=== PATIENT | male | born 1970 | race Caucasian/White ===

== ENCOUNTER 2021-06-19 16:22 | Emergency (ER) | payer BC ==
[~2021-06-19] VITALS: Ht 182.9 cm; Wt 81.6 kg
[2021-06-19] MEDS ORDERED: ONDANSETRON HCL INJ 2MG/ML 2ML 2 MG/ML VIAL IV STA (17:13)
[2021-06-19] MEDS ORDERED: SODIUM CHLORIDE 0.9% 1000ML 1,000 ML IV SCH (17:15)
[2021-06-19] MEDS ORDERED: SODIUM CHLORIDE 0.9% 1000ML 1,000 ML ONE (17:23)
[2021-06-19 17:52] LABS: BASOPHILS % 0.2 % (0.0-1.0); HEMATOCRIT 42.2 % (38.2-49.6); HEMOGLOBIN 13.8 g/dL (14.0-18.0); LYMPHOCYTES # (AUTO) 0.7 (1.0-3.2); LYMPHOCYTES % 17.1 % (18.0-39.1); MEAN CORPUSCULAR HEMOGLOBIN 28.5 pg (28-32); MEAN CORPUSCULAR HGB CONC 32.7 g/dL (31-35); MONOCYTES # (AUTO) 0.2 (0.2-0.8); MONOCYTES % 5.2 % (4.4-11.3); NEUTROPHILS # (AUTO) 3.3 (2.1-6.9); PLATELET COUNT 132 x10e3/uL (140-360); RED BLOOD COUNT 4.85 x10e6/uL (4.3-5.7); RED CELL DISTRIBUTION WIDTH 12.9 % (11.7-14.4)
[2021-06-19 18:12] LABS: ANION GAP 15.9 mmol/L (8-16); CALCIUM 8.2 mg/dL (8.4-10.2); CREATININE, SERUM 1.17 mg/dL (0.72-1.25); POTASSIUM 3.9 mmol/L (3.5-5.1)
[2021-06-19] MEDS ORDERED: ONDANSETRON ODT4 MG PO (18:41)
== END 2021-06-19 18:50 | disposition home or self-care (01) ==
LOC: ER 17:18
DX: U07.1 COVID-19 (principal); R19.7 Diarrhea, unspecified; R43.9 Unspecified disturbances of smell and taste; R53.1 Weakness; R52 Pain, unspecified; Z71.89 Other specified counseling
CPT/HCPCS: 36415; 80048; 85025; 99283; J7030; U0002

== ENCOUNTER → 2021-06-21 | Emergency (ER) | payer BC ==
[~2021-06-21] VITALS: Ht 182.9 cm; Wt 81.6 kg
[~2021-06-21] MED LIST: ACETAMINOPHEN 325 MG TAB ONE; ACETAMINOPHEN 325 MG TAB PO ONE; CASIRIVIMAB/IMDEVIMAB 10 ML in SODIUM CHLORIDE 0.9% 100 ML IV ONE; DEXAMETHASONE SOD PHOS 10 MG/1 ML VIAL ONE; KETOROLAC TROMETHAMINE 30 MG/ML VIAL ONE; ONDANSETRON HCL INJ 2MG/ML 2ML 2 MG/ML VIAL IV STA; ONDANSETRON ODT4 MG PO; SODIUM CHLORIDE 0.9% 1000ML 1,000 ML IV SCH
[2021-06-22 04:50] VITALS: BP 134/79
== END | disposition home or self-care (01) ==
LOC: ER 20:20
DX: R50.9 Fever, unspecified (principal); R06.02 Shortness of breath; R05 Cough; U07.1 COVID-19
CPT/HCPCS: 99283; J2405; J7030; J7050

== ENCOUNTER 2021-06-25 20:46 | Inpatient (IN) | payer BC ==
[~2021-06-25] VITALS: Ht 182.9 cm; Wt 82.1 kg
[~2021-06-25 20:46] MED LIST changes: -ACETAMINOPHEN 325 MG TAB ONE; -ACETAMINOPHEN 325 MG TAB PO ONE; -CASIRIVIMAB/IMDEVIMAB 10 ML in SODIUM CHLORIDE 0.9% 100 ML IV ONE; -DEXAMETHASONE SOD PHOS 10 MG/1 ML VIAL ONE; -KETOROLAC TROMETHAMINE 30 MG/ML VIAL ONE; -ONDANSETRON HCL INJ 2MG/ML 2ML 2 MG/ML VIAL IV STA; -SODIUM CHLORIDE 0.9% 1000ML 1,000 ML IV SCH
[2021-06-25] MEDS ORDERED: KETOROLAC TROMETHAMINE 30 MG/ML VIAL IM STA (21:39)
[2021-06-26] MEDS ORDERED: DEXAMETHASONE SOD PHOS 10 MG/1 ML VIAL IV ONE
[2021-06-26] MEDS ORDERED: ONDANSETRON HCL INJ 2MG/ML 2ML 2 MG/ML VIAL IV PRN (00:15)
[2021-06-26] MEDS ORDERED: ACETAMINOPHEN 325 MG TAB PO ONE (00:30)
[2021-06-26 00:37] LABS: BASOPHILS % 0.3 % (0.0-1.0); EOSINOPHILS % 0.4 % (0.0-6.0); HEMATOCRIT 37.5 % (38.2-49.6); HEMOGLOBIN 12.1 g/dL (14.0-18.0); LYMPHOCYTES # (AUTO) 0.6 (1.0-3.2); LYMPHOCYTES % 7.4 % (18.0-39.1); MEAN CORPUSCULAR HEMOGLOBIN 28.1 pg (28-32); MEAN CORPUSCULAR HGB CONC 32.3 g/dL (31-35); MEAN CORPUSCULAR VOLUME 87.2 fL (81-99); MONOCYTES # (AUTO) 0.2 (0.2-0.8); MONOCYTES % 2.8 % (4.4-11.3); NEUTROPHILS # (AUTO) 6.3 (2.1-6.9); NEUTROPHILS % 85.7 % (38.7-80.0); PLATELET COUNT 332 x10e3/uL (140-360); RED CELL DISTRIBUTION WIDTH 13.3 % (11.7-14.4)
[2021-06-26 00:52] LABS: CALCIUM 8.7 mg/dL (8.4-10.2); CREATININE, SERUM 1.12 mg/dL (0.72-1.25)
[2021-06-26 01:34] LABS: ANION GAP 18.6 mmol/L (8-16); POTASSIUM 3.6 mmol/L (3.5-5.1)
[2021-06-26] MEDS ORDERED: LACTATED RINGER'S 1,000 ML INJ ONE (08:00)
[2021-06-26] MEDS ORDERED: ZOLPIDEM TARTRATE 5 MG TAB PO PRN ×2 (09:00→21:00)
[2021-06-26] MEDS ORDERED: DOCUSATE SODIUM 100 MG CAP PO PRN (09:00)
[2021-06-26] MEDS: ASCORBIC ACID 500 MG TAB PO SCH ×2 (09:14→17:39)
[2021-06-26] MEDS: ZINC SULFATE 220 MG CAP PO SCH (09:14)
[2021-06-26] MEDS: ENOXAPARIN SOD INJ 40 MG/0.4 ML SYR SC SCH ×2 (09:14→21:00)
[2021-06-26] MEDS: DEXAMETHASONE SOD PHOS 10 MG/1 ML VIAL IV SCH (09:15)
[2021-06-26] MEDS: ACETAMINOPHEN 325 MG TAB PO PRN ×2 (09:15→17:39)
[2021-06-26] MEDS ORDERED: REMDESIVIR 200MG/NS 100ML 200 MG IV ONE (10:00)
[2021-06-26 15:53] LABS: HIV 1&2 AB SCREEN NON-REACTIVE (NONREACTIVE)
[2021-06-27] VITALS (9 sets, daily range): BP systolic 122–137; BP diastolic 75–84
[2021-06-27 06:08] LABS: BASOPHILS % 0.2 % (0.0-1.0); HEMOGLOBIN 11.2 g/dL (14.0-18.0); LYMPHOCYTES # (AUTO) 0.7 (1.0-3.2); LYMPHOCYTES % 6.2 % (18.0-39.1); MEAN CORPUSCULAR HEMOGLOBIN 28.1 pg (28-32); MEAN CORPUSCULAR VOLUME 87.7 fL (81-99); MONOCYTES # (AUTO) 0.3 (0.2-0.8); NEUTROPHILS # (AUTO) 9.9 (2.1-6.9); NEUTROPHILS % 88.4 % (38.7-80.0); PLATELET COUNT 387 x10e3/uL (140-360); RED BLOOD COUNT 3.99 x10e6/uL (4.3-5.7); RED CELL DISTRIBUTION WIDTH 13.2 % (11.7-14.4)
[2021-06-27 06:33] LABS: ANION GAP 15.4 mmol/L (8-16); CALCIUM 8.1 mg/dL (8.4-10.2); CREATININE, SERUM 0.88 mg/dL (0.72-1.25)
[2021-06-27 06:45] LABS: POTASSIUM 4.4 mmol/L (3.5-5.1)
[2021-06-27] MEDS: DEXAMETHASONE SOD PHOS 10 MG/1 ML VIAL IV SCH (09:00)
[2021-06-27] MEDS: ENOXAPARIN SOD INJ 40 MG/0.4 ML SYR SC SCH ×2 (09:00→21:00)
[2021-06-27] MEDS: ASCORBIC ACID 500 MG TAB PO SCH ×2 (09:00→17:00)
[2021-06-27] MEDS: ZINC SULFATE 220 MG CAP PO SCH (09:00)
[2021-06-27] MEDS ORDERED: SODIUM CHLORIDE 0.9% 50ML 50 ML ONE (10:26)
[2021-06-27] MEDS ORDERED: SODIUM CHLORIDE 0.9% 250ML 250 ML ONE (10:26)
[2021-06-27] MEDS: REMDESIVIR 100MG/NS 100ML 100 MG IV SCH (14:00)
[2021-06-27] MEDS: CEFTRIAXONE 1 GM in SODIUM CHLORIDE 0.9% 50ML 50 ML IV SCH (15:00)
[2021-06-28] VITALS (9 sets, daily range): BP systolic 86–137; BP diastolic 40–91
[2021-06-28] MEDS: ASCORBIC ACID 500 MG TAB PO SCH ×2 (09:25→16:25)
[2021-06-28] MEDS: DEXAMETHASONE SOD PHOS 10 MG/1 ML VIAL IV SCH (09:25)
[2021-06-28] MEDS: ZINC SULFATE 220 MG CAP PO SCH (09:26)
[2021-06-28] MEDS: ENOXAPARIN SOD INJ 40 MG/0.4 ML SYR SC SCH ×2 (09:26→20:07)
[2021-06-28 11:00] LABS: BASOPHILS % 0.2 % (0.0-1.0); HEMATOCRIT 37.5 % (38.2-49.6); HEMOGLOBIN 11.7 g/dL (14.0-18.0); LYMPHOCYTES % 8.4 % (18.0-39.1); MEAN CORPUSCULAR HEMOGLOBIN 28.1 pg (28-32); MEAN CORPUSCULAR HGB CONC 31.2 g/dL (31-35); MEAN CORPUSCULAR VOLUME 89.9 fL (81-99); MONOCYTES # (AUTO) 0.3 (0.2-0.8); MONOCYTES % 2.7 % (4.4-11.3); NEUTROPHILS # (AUTO) 10.4 (2.1-6.9); PLATELET COUNT 478 x10e3/uL (140-360); RED BLOOD COUNT 4.17 x10e6/uL (4.3-5.7); RED CELL DISTRIBUTION WIDTH 13.5 % (11.7-14.4)
[2021-06-28] MEDS: REMDESIVIR 100MG/NS 100ML 100 MG IV SCH (13:55)
[2021-06-28] MEDS: CEFTRIAXONE 1 GM in SODIUM CHLORIDE 0.9% 50ML 50 ML IV SCH (15:05)
[2021-06-29] VITALS: BP 118/82
[2021-06-29 04:00] VITALS: BP 128/77
[2021-06-29] MEDS ORDERED: ROBITUSSIN COU118 M4 PO (06:22)
[2021-06-29] MEDS ORDERED: PREDNISONE20 MG PO (06:22)
[2021-06-29] MEDS ORDERED: ASCORBIC ACID500 MG PO (06:22)
[2021-06-29] MEDS ORDERED: TESSALON PERLE100 MG PO (06:22)
[2021-06-29] MEDS ORDERED: ZITHROMAX500 MG PO (06:22)
[2021-06-29] MEDS ORDERED: LORATADINE10 MG PO (06:22)
[2021-06-29] MEDS ORDERED: KEFLEX125 MG/5 M PO (06:22)
[2021-06-29] MEDS ORDERED: ZINC SULFATE50 MG PO (06:22)
[2021-06-29] MEDS: ENOXAPARIN SOD INJ 40 MG/0.4 ML SYR SC SCH (08:20)
[2021-06-29] MEDS: ZINC SULFATE 220 MG CAP PO SCH (08:20)
[2021-06-29] MEDS: ASCORBIC ACID 500 MG TAB PO SCH (08:20)
[2021-06-29] MEDS: DEXAMETHASONE SOD PHOS 10 MG/1 ML VIAL IV SCH (08:20)
[2021-06-29 08:37] VITALS: BP 118/80
[2021-06-29 09:23] VITALS: BP 118/80
== END 2021-06-29 11:00 | disposition home or self-care (01) | DRG 177 ==
LOC: ER 21:54 → ERHOLD 06-26 02:06 → MED/SURG3 06-26 22:40
PROVIDERS: ADMIT Internal Medicine; ATTEND Internal Medicine
PROC: 8E0ZXY6 Isolation (ICD-10-PCS; 2021-06-25)
PROC: XW033E5 Introduction of Remdesivir Anti-infective into Peripheral Vein, Percutaneous Approach, New Technology Group 5 (ICD-10-PCS; principal; 2021-06-26)
DX: U07.1 COVID-19 (principal); J12.82 Pneumonia due to coronavirus disease 2019; J96.01 Acute respiratory failure with hypoxia; D64.9 Anemia, unspecified
CPT/HCPCS: 36415; 71045; 80048; 84484; 85025; 86140; 87390; 87536; 93005; 99285; G0433; G0435; J0456; J0696; J1100; J1650; J7050; J7121; U0002